=== PATIENT | male | born 1955 | race Caucasian/White ===

== ENCOUNTER 2017-02-05 13:08 | Emergency (ER) | payer SELFPAY ==
--- NOTE | 2017-02-07 13:33 | ER ---
ADMIT: 02/05/2017 RM/LOC: ER [facility] MR#: [id number] [id number] DARRIAN CAMARGO [address] [facility] [place] [address] Emergency Room Report SEX: M AGE: 61 : 1955 DATE: 02/05/2017 CHIEF COMPLAINT: Cut left wrist. HISTORY OF PRESENT ILLNESS: A 61-year-old male, presents to the ED for evaluation after sustaining an injury at home. States he was on a ladder installing a light fixture when it fell, the glass broke, sustained a laceration to his left wrist. There was profuse bleeding. He did apply pressure, presented to the ED for further evaluation at this time. He denies any numbness, tingling distally in his extremities. He did not fall. No neck or back pain. PAST MEDICAL HISTORY: Hypertension, hyperlipidemia, asthma, gout. PAST SURGICAL HISTORY: Left Achilles, shoulder, nasal, right eye. IMMUNIZATION: Tetanus is up-to-date, it was administered two years ago. ALLERGIES: NO KNOWN DRUG ALLERGIES. COURSE IN THE EMERGENCY ROOM: The patient is seen and examined. GENERAL: Afebrile, nontoxic. He is in mild amount of distress. He is a little anxious. EXTREMITIES: Examination of the left wrist reveals a 3 cm linear laceration. There is light bleeding at this time. He has a good radial pulse. He has brisk capillary refill in the extremities. His motor is intact. He is able to make a full fist, the okay sign, thumbs up. PROCEDURE NOTE: Laceration repair, 3 cm linear laceration on the left wrist. Anesthetized using 5 mL of lidocaine. After anesthesia was achieved, I did further investigated the wound. There was found to be some small shards of glass, which were removed with forceps and then irrigated thoroughly with 100 mL of saline. It was prepped with Betadine and Ultra-Dex. Again, explored to ADMIT: 02/05/2017 RM/LOC: EPI [facility] MR#: [id number] [id number] DARRIAN CAMARGO [address] [facility] [place] [address] Emergency Room Report SEX: M AGE: 61 : 1955 the base, there was no further foreign bodies identified, repaired using a running locked 4-0 Prolene sutures. Wound edges were well everted. Dressing was applied. CLINICAL IMPRESSION: Laceration, left wrist. DISPOSITION: Discharged home. Sutures out in 7 to 10 days. Monitor for infection. Follow up sooner with concerns. Not to submerge this. Keep this clean and dry, covered for 24 hours. Rest, ice, compress, elevation. Tylenol or Motrin for pain. Continue his other home medications. Activity as tolerated. Return with any concerns. Discharged home in stable condition. GLEN Arango / Rudy Castillo MD / carmel JOB #: [id number] CC: Koko Araiza MD, Attending Physician UNKNOWN, Family Physician
== END 2017-02-05 14:05 | disposition home or self-care (01) ==
LOC: ER 13:08
PROC: 0HQEXZZ Repair Left Lower Arm Skin, External Approach (ICD-10-PCS; principal; 2017-02-05)
DX: S61.512A Laceration without foreign body of left wrist, initial encounter (principal); I10 Essential (primary) hypertension; E78.5 Hyperlipidemia, unspecified; J45.909 Unspecified asthma, uncomplicated; W25.XXXA Contact with sharp glass, initial encounter; Y92.009 Unspecified place in unspecified non-institutional (private) residence as the place of occurrence of the external cause